=== PATIENT | female | born 1960 | race Caucasian/White ===

== ENCOUNTER 2016-12-13 10:28 | Day surgery (SDC) | payer BC ==
[~2016-12-13] VITALS: Ht 162.6 cm; Wt 59.0 kg
[2016-12-13] MEDS ORDERED: CEFAZOLIN SOD 1 GM/ ISO 50 ML PREMIX IV ONE (10:45)
[2016-12-13 11:17] VITALS: O2SAT 97
[2016-12-13] MEDS ORDERED: POLYMYXIN 500,000/BACIT.10,000 UNITS in NS IRR 1 L IR ONE (12:41)
[2016-12-13] MEDS ORDERED: LR 1,000 ML IV ONE (12:56)
[2016-12-13] MEDS ORDERED: NALBUPHINE HCL 10 MG/ML AMP IVP PRN (13:00)
[2016-12-13] MEDS ORDERED: ONDANSETRON HCL 4 MG/2 ML VIAL IVP PRN ×2 (13:00)
[2016-12-13] MEDS ORDERED: ePHEDrine sulfate 50 MG/ML VIAL IVP PRN (13:00)
[2016-12-13] MEDS ORDERED: DIPHENHYDRAMINE INJ 50 MG/ML VIAL IVP PRN (13:00)
[2016-12-13] MEDS ORDERED: NALOXONE HCL 0.4 MG/ML AMP (NARCAN) IVP PRN (13:00)
[2016-12-13] MEDS ORDERED: KETOROLAC TROMETHAMINE 30 MG VIAL IM PRN (13:00)
[2016-12-13] MEDS ORDERED: fentaNYL CITRATE/PF 100 MCG/2 ML AMP IVP PRN (13:00)
[2016-12-13] MEDS ORDERED: D5/0.45 NS 1,000 ML IV SCH (13:05)
[2016-12-13] MEDS ORDERED: HYDROcodone/ACETAMIN 5-325 MG TAB (NORCO/ VICODIN) PO PRN ×2 (13:15)
[2016-12-13] MEDS ORDERED: HYDROmorphone 1 MG INJ. 1 MG/ML AMPUL IVP PRN (13:15)
[2016-12-13] MEDS ORDERED: HYDROcodone/ACETAMIN 5-325 MG TAB (NORCO/ VICODIN) PO ONE (14:15)
[2016-12-13] MEDS ORDERED: HYDROcodone/ACETAMIN 10-325 MG TAB ONE (14:19)
[2016-12-13] MEDS ORDERED: HYDROcodone/ACETAMIN 5-325 MG TAB (NORCO/ VICODIN) ONE (14:21)
[2016-12-13 14:59] VITALS: BP 122/79; PULSE 70; RESP 16
[2016-12-13] MEDS ORDERED: DEXAMETHASONE SOD PHOSPHATE 4 MG/ML VIAL ONE (15:00)
[2016-12-13] MEDS ORDERED: METOCLOPRAMIDE HCL 10 MG/2 ML VIAL ONE (15:00)
[2016-12-13] MEDS ORDERED: fentaNYL CITRATE/PF 100 MCG/2 ML AMP ONE (15:00)
[2016-12-13] MEDS ORDERED: SEVOFLURANE 15 MIN GAS INH ONE (15:00)
[2016-12-13] MEDS ORDERED: BUPIVACAINE /EPINEPHRINE/PF 0.25% 30 ML VIAL INJ ONE (15:00)
[2016-12-13] MEDS ORDERED: MIDAZOLAM HCL 5 MG/5 ML VIAL ONE (15:00)
[2016-12-13] MEDS ORDERED: LR 1,000 ML IV.SOLN IV ONE (15:00)
[2016-12-13] MEDS ORDERED: PROPOFOL 200MG/ 20ML VIAL (DIPRIVAN) IV ONE (15:00)
== END 2016-12-13 14:40 | disposition home or self-care (01) ==
LOC: SDS 10:28 → SMU 10:29 → SDS 14:40
PROVIDERS: ATTEND Colon & Rectal Surgery
DX: T81.4XXA Infection following a procedure, initial encounter (principal); F32.9 Major depressive disorder, single episode, unspecified
CPT/HCPCS: 11005; 49568; 87070 ×2; 87075; J0690; J1100; J2250; J2704; J2765; J3010; J3490; J7120